=== PATIENT | female | born 1950 | race Caucasian/White ===

== ENCOUNTER 2023-11-20 11:16 | Emergency (ER) | payer OTHER, SELFPAY ==
[2023-11-20 11:20] VITALS: BP 116/62
[2023-11-20 11:40] VITALS: BP 117/55
[2023-11-20] MEDS: NSS 1000 IV (11:45)
[2023-11-20 11:58] LABS: Urine Albumin Trace (Neg - Trace); Urine Bilirubin 1+ (Negative); Urine Character Clear (Clear); Urine Color Amber; Urine Glucose Negative (Negative); Urine Ketone Negative (Negative); Urine Leukocyte 2+ (Negative); Urine Nitrite Negative (Negative); Urine Occult Blood 3+ (Negative); Urine Urobilinogen 1+ (Neg - 1+)
[2023-11-20 12:00] VITALS: BP 131/49
[2023-11-20 12:05] LABS: Urine Mucus Few; Urine Squamous Cell 0-2 /LPF (Few)
[2023-11-20 12:06] LABS: % Basophils 0.3 % (0-2); % Eosinophils 0.3 % (0-6); % Immature Granulocytes 0.3 % (0-0.5); % Lymphocytes 9.1 % (20.5-51.1); % Monocytes 4.7 % (1.7-9.3); % Neutrophils 85.3 % (42.2-75.2); Absolute Lymphocytes 0.5 10^3/uL (1.2-3.4); Absolute Monocytes 0.3 10^3/uL (0.1-0.6); Absolute Neutrophils 5.1 10^3/uL (1.4-6.5); Hematocrit 40.2 % (37.0-47.0); Hemoglobin 13.8 g/dL (12.0-16.0); Mean Corp Hgb Conc. 34.3 g/dL (33.0-37.0); Mean Corpuscular Hgb 31.4 pg (27.0-31.0); Mean Corpuscular Volume 91.4 fL (81.0-99.0); Mean Platelet Volume 10.4 fL (7.4-10.4); Nucleated Red Blood Cells % 0 %; Platelet Count 185 10^3/uL (130-400); Red Cell Dist. Width 13.5 % (11.5-14.5); Urine Calcium Oxalate Crystals Present
[2023-11-20 12:07] LABS: Urine White Cell 16-20 /HPF (0-5)
[2023-11-20 12:09] LABS: Urine Bacteria Few (Negative)
[2023-11-20 12:10] LABS: ALT (SGPT) 22 U/L (0-35); AST (SGOT) 50 U/L (14-36); Albumin 3.8 g/dl (3.5-5.0); Alkaline Phosphatase 39 U/L (38-126); Blood Urea Nitrogen 22 mg/dl (7-17); Calcium 8.9 mg/dl (8.4-10.2); Carbon Dioxide 26 mmol/L (22-30); Chloride 104 mmol/L (98-107); Estimated Creatinine Clearance 51 ml/min; Glucose 103 mg/dl (70-99); Potassium 4.3 mmol/L (3.5-5.1); Sodium 134 mmol/L (135-145); Total Bilirubin 0.7 mg/dl (0.2-1.3); eGFR > 60.00
--- NOTE | 2023-11-20 12:20 | EDRN ---
Adrianne Call PA in to see pt at this time.
--- NOTE | 2023-11-20 12:22 | ED.GENMED ---
Addendum entered and electronically signed by Tiburcio Izquierdo Jr., PA-C 11/23/23 13:24:
Urine culture positive for 20,000 of E. coli. Patient claims that she has had some urinary frequency which could be consistent with UTI patient was started on Keflex as she claims that she believes she has tolerated this in the past and is unsure
if her allergy that is listed for penicillins is accurate concerning she does not have any recollection of previous penicillin allergy. Otherwise advised for close primary care follow-up.
Original Note:
History of Present Illness
<Grace Thompson PA-C - Last Filed: 11/20/23 14:46>
General
Chief Complaint: Abdominal Symptoms
Source: patient and family
Exam Limitations: none
Time Seen by Provider: 11/20/23 11:27
Nursing documentation reviewed up to this point in time: agreed with
Travel History
Have you had any contact with someone who has COVID-19?: No
Do you have any symptoms of coronavirus? Fever > 100 degrees, chills, cough, shortness of breath, sore throat, loss of taste or smell, muscle aches, or headache?: No
History of Present Illness
History of Present Illness:
This is a 73-year-old female with a past medical history of hypertension presenting to emergency department today with 3 days of diarrhea and nausea. She states that when it first started, she believes it would pass eventually on its own and started
taking Gas-X and antidiarrheal medication however this did not relieve her symptoms. She has had similar episodes in the past but they have not lasted this long before. She has had episodes in the past, her primary care provider attributed them to
irritable bowel syndrome. She denies vomiting, fevers or chills, dysuria, hematuria. She does have some mild right-sided cramping pain occasionally associated with the diarrhea. She has no chest pain, shortness of breath, back pain. She denies
recent travel outside the country. She denies recent antibiotic use.
Past History
<Grace Thmopson PA-C - Last Filed: 11/20/23 14:46>
Past History
ED Past Medical History: HTN, Hypercholesterolemia and Other (Fibromyalgia, DVT related to OCP use many years ago)
ED Past Surgical History: Appendectomy
Social History
Tobacco: Smoker
Alcohol: Occasional
Drug: None
Personal:
Living: with family
Family History
Family History: Other (Noncontributory)
Review of Systems
<Grace Thompson PA-C - Last Filed: 11/20/23 14:46>
Review of Systems
All Other Systems: ROS reviewed and negative except as documented in HPI and ROS
Phy Exam
<Grace Thompson PA-C - Last Filed: 11/20/23 14:46>
Physical Exam
Physical Exam:
Vitals: Vital signs are stable, patient is afebrile
General: patient is well appearing and in no acute distress
Skin: warm and dry, no rashes or lesions
Cardiac: regular rate and rhythm, no murmurs
Pulm: normal respiratory effort, no wheezes, rales, or rhonchi
Abdomen: abdomen is non-distended, non-tender to palpation. normoactive bowel sounds.
Neuro: AAOx3.
Course
<Grace Thompson PA-C - Last Filed: 11/20/23 14:46>
Orders/Labs/Results
Orders:
Orders
11/20/23 11:29
IV Insert/Care/Rem.- Treatment PRN
11/20/23 11:48
Complete Blood Count/With Diff Urgent
Comprehensive Metabolic Panel Urgent
Urinalysis Reflex To Culture Urgent
Date Specimen was Collected: 11/20/23
Time Specimen was Collected: 11:36
Urine Microscopic Reflex Cult Urgent
Urine Culture Urgent
[facility] Source: U
Specimen Description:
Date Specimen was Collected: 11/20/23
Time Specimen was Collected: 11:36
11/20/23 12:22
0.9% Sodium Chloride 1000 ml [Nss] 1,000 ml IV BOLUS
11/20/23 12:34
Ondansetron Injectable [Zofran] 4 mg IV NOW STA
11/20/23 12:35
Ondansetron Injectable [Zofran] 4 mg .ROUTE .[facility]
11/20/23 13:53
C difficile Antigen & Toxins Urgent
[facility] Source: Feces/Stool
Specimen Description:
Date Specimen was Collected: 11/20/23
Time Specimen was Collected: 13:41
Stool Culture Urgent
[facility] Source: Feces/Stool
Specimen Description:
Date Specimen was Collected: 11/20/23
Time Specimen was Collected: 13:41
Abnormal Lab Results
11/20/23
11:48
MCH 31.4 H pg
(27.0-31.0)
Absolute Lymphs (auto) 0.5 L 10^3/uL
(1.2-3.4)
Neutrophils % 85.3 H %
(42.2-75.2)
Lymphocytes % 9.1 L %
(20.5-51.1)
Sodium 134 L mmol/L
(135-145)
BUN 22 H mg/dl
(7-17)
Glucose 103 H mg/dl
(70-99)
AST 50 H U/L
(14-36)
Total Protein 6.0 L g/dl
(6.3-8.2)
Ur Occult Blood Reflex 3+ A
(Negative)
Urine Bilirubin 1+ A
(Negative)
Leukocyte Esterase Rfl 2+ A
(Negative)
Urine RBC 7-10 A /HPF
(0-2)
Urine WBC (Reflex) 16-20 A /HPF
(0-5)
Urine Bacteria (Reflex) Few A
(Negative)
11/20/23 11:48
11/20/23 11:48
Vital Signs
Initial and Last Documented VS:
Initial Vital Signs
Temp Pulse Resp BP Pulse Ox
98.1 F 79 18 116/62 96
11/20/23 11:20 11/20/23 11:20 11/20/23 11:20 11/20/23 11:20 11/20/23 11:20
Last Documented Vital Signs
Temp Pulse Resp BP Pulse Ox
98.1 F 70 16 131/55 96
11/20/23 11:20 11/20/23 13:00 11/20/23 13:00 11/20/23 13:00 11/20/23 13:00
<Brandan Roe, - Last Filed: 11/20/23 14:34>
Orders/Labs/Results
Orders:
Orders
11/20/23 11:29
IV Insert/Care/Rem.- Treatment PRN
11/20/23 11:48
Complete Blood Count/With Diff Urgent
Comprehensive Metabolic Panel Urgent
Urinalysis Reflex To Culture Urgent
Date Specimen was Collected: 11/20/23
Time Specimen was Collected: 11:36
Urine Microscopic Reflex Cult Urgent
Urine Culture Urgent
[facility] Source: U
Specimen Description:
Date Specimen was Collected: 11/20/23
Time Specimen was Collected: 11:36
11/20/23 12:22
0.9% Sodium Chloride 1000 ml [Nss] 1,000 ml IV BOLUS
11/20/23 12:34
Ondansetron Injectable [Zofran] 4 mg IV NOW STA
11/20/23 12:35
Ondansetron Injectable [Zofran] 4 mg .ROUTE .[facility]
11/20/23 13:53
C difficile Antigen & Toxins Urgent
[facility] Source: Feces/Stool
Specimen Description:
Date Specimen was Collected: 11/20/23
Time Specimen was Collected: 13:41
Stool Culture Urgent
[facility] Source: Feces/Stool
Specimen Description:
Date Specimen was Collected: 11/20/23
Time Specimen was Collected: 13:41
Abnormal Lab Results
11/20/23
11:48
MCH 31.4 H pg
(27.0-31.0)
Absolute Lymphs (auto) 0.5 L 10^3/uL
(1.2-3.4)
Neutrophils % 85.3 H %
(42.2-75.2)
Lymphocytes % 9.1 L %
(20.5-51.1)
Sodium 134 L mmol/L
(135-145)
BUN 22 H mg/dl
(7-17)
Glucose 103 H mg/dl
(70-99)
AST 50 H U/L
(14-36)
Total Protein 6.0 L g/dl
(6.3-8.2)
Ur Occult Blood Reflex 3+ A
(Negative)
Urine Bilirubin 1+ A
(Negative)
Leukocyte Esterase Rfl 2+ A
(Negative)
Urine RBC 7-10 A /HPF
(0-2)
Urine WBC (Reflex) 16-20 A /HPF
(0-5)
Urine Bacteria (Reflex) Few A
(Negative)
11/20/23 11:48
11/20/23 11:48
Vital Signs
Initial and Last Documented VS:
Initial Vital Signs
Temp Pulse Resp BP Pulse Ox
98.1 F 79 18 116/62 96
11/20/23 11:20 11/20/23 11:20 11/20/23 11:20 11/20/23 11:20 11/20/23 11:20
Last Documented Vital Signs
Temp Pulse Resp BP Pulse Ox
98.1 F 70 16 131/55 96
11/20/23 11:20 11/20/23 13:00 11/20/23 13:00 11/20/23 13:00 11/20/23 13:00
<Grace Thompson PA-C - Last Filed: 11/20/23 14:46>
MDM/Problems Addressed
Differential Diagnosis Includes:
Differentials include acute viral diarrheal illness, acute bacterial diarrheal illness, irritable bowel syndrome, C. difficile
MDM/Problems Addressed:
diarrhea
dehydration
nausea

will start IV fluids, give zofran, obtain stool cultures and reassess
Chronic conditions affecting care: HTN
Acute Exacerbation and/or Progression of Chronic Illness: HTN
<Grace Thompson PA-C - Last Filed: 11/20/23 14:46>
*Pulse Oximetry
Patient hypoxic: no
*Critical Care Note
Total Time (30-74mins, 75-104mins- exclusive of procedures): Not Applicable
Data Reviewed
Review of Other/Old Records Reveals: Records (Reviewed ER physician documentation from 02/08/2020) and Discharge Summary (No recent hospitalization)
Source: patient
Prescriptions/Medications Considered But Not Given:
n/a
Further Testing Considered But Not Given:
Considered abdominal imaging however patient not having significant pain and pain seems to be related to diarrheal episodes
<Grace Thompson PA-C - Last Filed: 11/20/23 14:46>
Patient Management
Escalation/DeEscalation of care consider admission/obs:
This is a 73-year-old female presenting emergency department today with acute diarrheal illness for the past 3 days. She denies fevers or chills. She also has associated nausea but no vomiting. She also noted small specks of blood in her stool.
Here in the emergency department, her CBC demonstrates no leukocytosis and her CMP demonstrates dehydration. She was given a liter of fluids as well as Zofran. This improved her symptoms. She still noted a few episodes of diarrhea however we were
able to obtain a sample here which was negative for C. difficile. Will send patient home with Carlos, advised to follow-up with her primary care provider to ensure resolution of her symptoms.
<Grace Thompson PA-C - Last Filed: 11/20/23 14:46>
Update Note
Update Note:
1:24 pm-- on reevaluation, patient does state that she feels a bit better with IV fluids.
2:40 pm-- patient's symptoms have improved but she is still feeling nauseous, requesting zofran to go home with. Will send patient home with carlos. Stool testing negative for C.diff.
ED Attending Note
<Grace Thompson PA-C - Last Filed: 11/20/23 14:46>
-
Portions of this chart may have been created with voice recognition software.� Occasional wrong word or��sound alike� substitutions may have occurred due to the inherent limitations of voice recognition software.
<Brandan Roe DO - Last Filed: 11/20/23 14:34>
ED Attending Note
Patient seen and examined by attending physician: Yes
I performed the substantive portion of visit, reviewed & personally made and approve the management plan that is documented in note by myself or HORACE.: Yes
I performed a history and physical exam of patient and discussed management with resident, I reviewed resident's note and agree with documented findings and plan of care.: Yes
ED Attending Note:
I evaluated the patient at bedside. The patient's white blood cell count is normal. Slight elevation of BUN to creatinine ratio. Creatinine normal. Urinalysis was obtained by urine which appears to be insignificant. Main symptom is diarrhea.
She is eager to go home now. She feels somewhat improved after fluids were given. PA planning on calling patient with results. She strongly prefers to have something like Lomotil prescribed. I did suggest letting it run its course though.
Discharge Plan
Departure
Patient Disposition: Home (Routine Discharge)
Date of Disposition: 11/20/23
Time of Disposition: 14:27
Patient with high blood pressure during this ER visit?: Yes
Condition: Good
Discharge Problem:
Diarrhea
Instructions: Dehydration, Adult (DC), Acute Diarrhea, BLOOD PRESSURE
Prescriptions:
New
diphenoxylate-atropine [Lomotil] 2.5-0.025 mg tablet
1 tab PO Q6H PRN (Reason: diarrhea) Qty: 12 0RF
ondansetron 4 mg tablet,disintegrating
4 mg PO Q8H 2 Days Qty: 6 0RF
No Action
aspirin 325 MG tablet
325 mg PO DAILY PRN (Reason: headache)
simvastatin 20 MG tablet
40 mg PO HS
atenolol 50 MG tablet
50 mg PO HS
Celexa:
10 mg PO DAILY
Nortriptyline
10 mg PO DAILY
Patient Comments:
Pt states she takes 120 mg of this (noted 04/21/15).
diazepam 5 MG tablet
5 mg PO TIDPRN PRN (Reason: pain) Qty: 12 0RF
metronidazole 500 MG tablet
500 mg PO TID Qty: 20 0RF
ciprofloxacin HCl [Cipro] 500 MG tablet
500 mg PO BID Qty: 13 0RF
Referrals:
Henry Sanches MD [Family Provider] -
Activity Restrictions/Additional Instructions:
Please stay well hydrated.
Please follow up with your primary care provider. We will call you with the results of your C.diff test.
We have sent Zofran to your pharmacy, please take 1 tablet every 8 hours as needed for nausea. We also sent Lomotil to your pharmacy, please take 1 tablet every 6 hours as needed for diarrhea. If your C.diff test is positive, please STOP the
lomotil.
Interventions
Interventions:
*Risk Screen - Suicide Last Done: 11/20/23 11:20
*General Assessment Last Done: 11/20/23 11:20
*Neglect/Abuse Screening Last Done: 11/20/23 11:20
ED- Fall Risk Assessment Last Done: 11/20/23 11:40
*ED COVID-19 Vaccine History Last Done: 11/20/23 11:20
JO-Rwjywd-Zthmrkongv Assessment Last Done: 11/20/23 11:40
[2023-11-20] MEDS: ZOFRAN 4 MG IV (12:37)
[2023-11-20 13:00] VITALS: BP 131/55
[2023-11-20 14:00] VITALS: BP 138/59
== END 2023-11-20 14:50 | disposition home or self-care (01) ==
LOC: EMR 11:16
PROVIDERS: Physician Assistant; EMERGENCY PHYSICIAN Emergency Medicine; FAMILY PHYSICIAN Family Medicine
DX: R19.7 Diarrhea, unspecified (principal); R11.0 Nausea; I10 Essential (primary) hypertension; E78.00 Pure hypercholesterolemia, unspecified; M79.7 Fibromyalgia; F17.200 Nicotine dependence, unspecified, uncomplicated; K58.9 Irritable bowel syndrome, unspecified; Z86.718 Personal history of other venous thrombosis and embolism; Z90.49 Acquired absence of other specified parts of digestive tract
CPT/HCPCS: 99283; 96374; 96361; 80053; 81003; 81015; 85025; 87045; 87046; 87077; 87086; 87186; 87324; 87427; 87449

== ENCOUNTER 2024-02-06 10:15 | Emergency (ER) | payer OTHER, SELFPAY ==
[2024-02-06 10:18] VITALS: BP 126/59
[2024-02-06 11:51] VITALS: BMI 20.7
[2024-02-06] MEDS: NSS 1000 IV (12:07)
[2024-02-06] MEDS: OMNIPAQUE 50 ML PO (12:11)
[2024-02-06] MEDS: DILAUDID 0.5 MG IV (12:12)
[2024-02-06] MEDS: ZOFRAN 4 MG IV (12:13)
[2024-02-06 12:33] LABS: % Basophils 0.7 % (0-2); % Eosinophils 1.2 % (0-6); % Immature Granulocytes 0.4 % (0-0.5); % Lymphocytes 10.3 % (20.5-51.1); % Monocytes 7.2 % (1.7-9.3); % Neutrophils 80.2 % (42.2-75.2); Absolute Basophils 0.1 10^3/uL (0-0.2); Absolute Eosinophils 0.1 10^3/uL (0-0.7); Absolute Lymphocytes 0.8 10^3/uL (1.2-3.4); Absolute Monocytes 0.6 10^3/uL (0.1-0.6); Absolute Neutrophils 6.5 10^3/uL (1.4-6.5); Hematocrit 40.9 % (37.0-47.0); Hemoglobin 13.7 g/dL (12.0-16.0); Mean Corp Hgb Conc. 33.5 g/dL (33.0-37.0); Mean Corpuscular Volume 92.5 fL (81.0-99.0); Mean Platelet Volume 10.6 fL (7.4-10.4); Nucleated Red Blood Cells % 0 %; Platelet Count 191 10^3/uL (130-400); Red Blood Cell Count 4.42 10^6/uL (4.20-5.40); Red Cell Dist. Width 13.7 % (11.5-14.5); White Blood Cell Count 8.2 10^3/uL (4.8-10.8)
--- NOTE | 2024-02-06 12:37 | ED.GENMED ---
History of Present Illness
<Chai Pineda DO - Last Filed: 02/06/24 12:39>
General
Chief Complaint: Abdominal Pain
Source: patient and spouse
Exam Limitations: none
Time Seen by Provider: 02/06/24 11:32
Nursing documentation reviewed up to this point in time: agreed with
Travel History
Have you had any contact with someone who has COVID-19?: No
Do you have any symptoms of coronavirus? Fever > 100 degrees, chills, cough, shortness of breath, sore throat, loss of taste or smell, muscle aches, or headache?: No
History of Present Illness
History of Present Illness:
73-year-old female limited past medical history presents with abdominal pain left greater than right 4 days ago no fever or chills, no nausea has been constipated, saw her PCP x 2 initially had a urine dip which showed blood given antibiotics
Augmentin took 2 doses, followed up the next day, told the culture was negative told to stop the antibiotics pain is worsened no prior abdominal surgeries,
Past History
<DO Miesha Cook Last Filed: 02/06/24 12:39>
Past History
ED Past Medical History: HTN, Hypercholesterolemia and Other (Fibromyalgia, DVT related to OCP use many years ago)
ED Past Surgical History: Appendectomy
Social History
Tobacco: Smoker
Alcohol: Occasional
Drug: None
Personal:
Living: with family
Employment: Retired
Family History
Family History: Other (Noncontributory)
Review of Systems
<DO Miesha Cook Last Filed: 02/06/24 12:39>
Review of Systems
All Other Systems: Not applicable
Constitutional: Denies fever or fatigue
Respiratory: Reports no symptoms
Cardiac: Reports no symptoms
ABD/GI: Reports abdominal pain
Phy Exam
<Chai Pineda DO - Last Filed: 02/06/24 12:39>
Physical Exam
Physical Exam:
Physical Exam
General: no apparent distress, not acutely ill
Neck: No jaw
Heart: s1/s2 regular rate and rhythm, no murmur. equal radial pulses.
Lungs: no acute respiratory distress.
Abdomen: Tender left greater than right lower abdomen
Neuro: alert and oriented. no focal neurological deficits
Skin: no rash
Psychiatric: well kept. interactive and cooperative
Extremities: no edema.
Course
<Chai Pineda, DO - Last Filed: 02/06/24 12:39>
Orders/Labs/Results
Orders:
Orders
02/06/24 11:58
HYDROmorphone [Dilaudid] 0.5 mg IV NOW STA
02/06/24 11:59
CT Abd/pel W Iv And Oral Contr Urgent
Comment:
Reason For Exam: PIAN
0.9% Sodium Chloride 1000 ml [Nss] 1,000 ml IV BOLUS
Iohexol [Omnipaque] See Protocol PO NOW STA
02/06/24 12:10
Ondansetron Injectable [Zofran] 4 mg .ROUTE .[facility]
02/06/24 12:12
Ondansetron Injectable [Zofran] 4 mg IV NOW STA
02/06/24 12:19
Complete Blood Count/With Diff Urgent
Comprehensive Metabolic Panel Urgent
Abnormal Lab Results
02/06/24
12:19
MPV 10.6 H fL
(7.4-10.4)
Absolute Lymphs (auto) 0.8 L 10^3/uL
(1.2-3.4)
Neutrophils % 80.2 H %
(42.2-75.2)
Lymphocytes % 10.3 L %
(20.5-51.1)
BUN 22 H mg/dl
(7-17)
Glucose 101 H mg/dl
(70-99)
Total Protein 6.0 L g/dl
(6.3-8.2)
02/06/24 12:19
02/06/24 12:19
Vital Signs
Initial and Last Documented VS:
Initial Vital Signs
Temp Pulse Resp BP Pulse Ox
98.7 F 73 18 126/59 97
02/06/24 10:18 02/06/24 10:18 02/06/24 10:18 02/06/24 10:18 02/06/24 10:18
Last Documented Vital Signs
Temp Pulse Resp BP Pulse Ox
98.7 F 60 18 126/59 96
02/06/24 10:18 02/06/24 12:30 02/06/24 10:18 02/06/24 10:18 02/06/24 12:30
Lamarlt;Casey Allen PA-C - Last Filed: 02/06/24 16:45>
Orders/Labs/Results
Orders:
Orders
02/06/24 11:58
HYDROmorphone [Dilaudid] 0.5 mg IV NOW STA
02/06/24 11:59
CT Abd/pel W Iv And Oral Contr Urgent
Comment:
Reason For Exam: PIAN
0.9% Sodium Chloride 1000 ml [Nss] 1,000 ml IV BOLUS
Iohexol [Omnipaque] See Protocol PO NOW STA
02/06/24 12:10
Ondansetron Injectable [Zofran] 4 mg .ROUTE .[facility]
02/06/24 12:12
Ondansetron Injectable [Zofran] 4 mg IV NOW STA
02/06/24 12:19
Complete Blood Count/With Diff Urgent
Comprehensive Metabolic Panel Urgent
Abnormal Lab Results
02/06/24
12:19
MPV 10.6 H fL
(7.4-10.4)
Absolute Lymphs (auto) 0.8 L 10^3/uL
(1.2-3.4)
Neutrophils % 80.2 H %
(42.2-75.2)
Lymphocytes % 10.3 L %
(20.5-51.1)
BUN 22 H mg/dl
(7-17)
Glucose 101 H mg/dl
(70-99)
Total Protein 6.0 L g/dl
(6.3-8.2)
02/06/24 12:19
02/06/24 12:19
Vital Signs
Initial and Last Documented VS:
Initial Vital Signs
Temp Pulse Resp BP Pulse Ox
98.7 F 73 18 126/59 97
02/06/24 10:18 02/06/24 10:18 02/06/24 10:18 02/06/24 10:18 02/06/24 10:18
Last Documented Vital Signs
Temp Pulse Resp BP Pulse Ox
98.7 F 60 18 126/59 96
02/06/24 10:18 02/06/24 12:30 02/06/24 10:18 02/06/24 10:18 02/06/24 12:30
<Chai Pineda DO - Last Filed: 02/06/24 12:39>
MDM/Problems Addressed
Differential Diagnosis Includes:
Diverticulitis colitis urinary tract infection ovarian pathology
MDM/Problems Addressed:
Left lower abdominal
Chronic conditions affecting care: Previous abdomnial surgery
Acute Exacerbation and/or Progression of Chronic Illness: Previous abdomnial surgery
<Chai Pineda DO - Last Filed: 02/06/24 12:39>
*Radiology
Radiology exam reviewed: preliminary read by ED provider
*Pulse Oximetry
Patient hypoxic: no
*Coiler Operator Interpretation
Rate: Coiler Operator- N/A
*Critical Care Note
Total Time (30-74mins, 75-104mins- exclusive of procedures): Not Applicable
<Casey Allen PA-C - Last Filed: 02/06/24 16:45>
Update Note
Update Note:
Received care of patient upon pending CT. CT demonstrates colonic wall thickening to suggest diverticulitis without evidence of rupture free air or abscess. No other abnormalities were found. Discussed with patient. She has a severely adverse
reaction to Cipro. Will hold off on quinolones. Will have her continue the Augmentin. Recommended follow-up with family doctor to ensure read
ED Attending Note
<Chai Pineda DO - Last Filed: 02/06/24 12:39>
-
Portions of this chart may have been created with voice recognition software.� Occasional wrong word or��sound alike� substitutions may have occurred due to the inherent limitations of voice recognition software.
Discharge Plan
Departure
Patient Disposition: Home (Routine Discharge)
Date of Disposition: 02/06/24
Time of Disposition: 16:42
Patient with high blood pressure during this ER visit?: No
Discharge Problem:
Diverticulitis
Instructions: Diverticulitis (DC)
Prescriptions:
No Action
aspirin 325 MG tablet
325 mg PO DAILY PRN (Reason: headache)
simvastatin 20 MG tablet
40 mg PO HS
atenolol 50 MG tablet
50 mg PO HS
Celexa:
10 mg PO DAILY
Nortriptyline
10 mg PO DAILY
Patient Comments:
Pt states she takes 120 mg of this (noted 04/21/15).
diazepam 5 MG tablet
5 mg PO TIDPRN PRN (Reason: pain) Qty: 12 0RF
metronidazole 500 MG tablet
500 mg PO TID Qty: 20 0RF
ciprofloxacin HCl [Cipro] 500 MG tablet
500 mg PO BID Qty: 13 0RF
diphenoxylate-atropine [Lomotil] 2.5-0.025 mg tablet
1 tab PO Q6H PRN (Reason: diarrhea) Qty: 12 0RF
ondansetron 4 mg tablet,disintegrating
4 mg PO Q8H 2 Days Qty: 6 0RF
cephalexin 500 mg capsule
500 mg PO TID 3 Days Qty: 9 0RF
Referrals:
Henry Sanches MD [Family Provider] -
Activity Restrictions/Additional Instructions:
Continue with the Augmentin. Use clear liquids. Advance to bland diet as tolerated.
Interventions
Interventions:
*Risk Screen - Suicide Last Done: 02/06/24 11:52
*General Assessment Last Done: 02/06/24 11:52
*Neglect/Abuse Screening Last Done: 02/06/24 11:52
ED- Fall Risk Assessment Last Done: 02/06/24 12:29
*ED COVID-19 Vaccine History Last Done: 02/06/24 10:18
TQ-Vmidkb-Qvrpgfnyuh Assessment Last Done: 02/06/24 11:52
Discharge Date and Time
Print Language: CHINESE
[2024-02-06 12:45] LABS: ALT (SGPT) 14 U/L (0-35); AST (SGOT) 26 U/L (14-36); Albumin 3.7 g/dl (3.5-5.0); Alkaline Phosphatase 41 U/L (38-126); Blood Urea Nitrogen 22 mg/dl (7-17); Calcium 9.4 mg/dl (8.4-10.2); Carbon Dioxide 28 mmol/L (22-30); Chloride 105 mmol/L (98-107); Estimated Creatinine Clearance 59 ml/min; Glucose 101 mg/dl (70-99); Potassium 4.3 mmol/L (3.5-5.1); Sodium 136 mmol/L (135-145); Total Bilirubin 0.9 mg/dl (0.2-1.3); eGFR > 60.00
[2024-02-06 15:24] VITALS: BP 134/50
[2024-02-06 16:00] VITALS: BP 142/63
== END 2024-02-06 17:49 | disposition home or self-care (01) ==
LOC: EMR 10:15
PROVIDERS: EMERGENCY PHYSICIAN Emergency Medicine; FAMILY PHYSICIAN Family Medicine
DX: K57.12 Diverticulitis of small intestine without perforation or abscess without bleeding (principal); F17.200 Nicotine dependence, unspecified, uncomplicated
CPT/HCPCS: 99285; 96374; 96375; 96361; 74177; 80053; 85025; Q9967

== ENCOUNTER → 2024-07-08 10:00 | Outpatient (REF) | payer OTHER, SELFPAY | LOC: HWRAD 10:00 | PROVIDERS: ATTENDING PHYSICIAN Family Medicine | DX: R05.1 Acute cough (principal); J40 Bronchitis, not specified as acute or chronic | CPT/HCPCS: 71046 ==

== ENCOUNTER 2025-06-03 09:08 | Emergency (ER) | payer OTHER, SELFPAY ==
[2025-06-03 09:13] VITALS: BP 137/68
--- NOTE | 2025-06-03 10:13 | ED.MUSCINJ ---
HPI-Injury
General
Chief Complaint: Fall
Source: patient
Exam Limitations: none
Time Seen by Provider: 06/03/25 10:03
History of Present Illness-Injury
Initial Injury comments:
75-year-old female presents complaining of left knee pain. She tripped and fell landing on her left knee yesterday. She notes swelling and pain. She is using a cane which she usually does not. No other complaints.
Past History
Past History
ED Past Medical History: HTN, Hypercholesterolemia and Other (Fibromyalgia, DVT related to OCP use many years ago)
ED Past Surgical History: Appendectomy
Social History
Tobacco: Smoker
Alcohol: Occasional
Drug: None
Personal:
Living: with family
Employment: Retired
Family History
Family History: Other (Noncontributory)
Phy Exam
Physical Exam
Physical Exam:
General: Well-appearing female in no acute distress
Musculoskeletal exam: Left knee with moderate effusion tender over the anterior medial aspect. Able to straight leg raise. No significant deformity
Skin is intact
Injury Course
Orders/Labs/Results
Orders:
Orders
06/03/25 09:15
CR Knee - Left 4 Or More View* Urgent
Comment:
Reason For Exam: fall
MDM/Problems Addressed
Differential Diagnosis Includes:
Mechanical fall with left knee strike. Consider contusion versus effusion versus hematoma versus fracture. X-rays pending
*Pulse Oximetry
SaO2: 98
Oxygen Mode of Delivery: Room air
Patient hypoxic: no
*Critical Care Note
Total Time (30-74mins, 75-104mins- exclusive of procedures): Not Applicable
Update Note
Update Note:
X-rays left knee show significant degenerative joint disease without associated fracture. There is a small suprapatellar effusion noted. I suspect flare of underlying arthritis causing pain. Will offer knee immobilizer and have her follow-up.
ED Attending Note
-
Portions of this chart may have been created with voice recognition software.� Occasional wrong word or��sound alike� substitutions may have occurred due to the inherent limitations of voice recognition software.
Discharge Plan
Departure
Patient Disposition: Home (Routine Discharge)
Date of Disposition: 06/03/25
Time of Disposition: 12:38
Patient with high blood pressure during this ER visit?: No
Discharge Problem:
Contusion
Instructions: Contusion (DC)
Prescriptions:
No Action
aspirin 325 MG tablet
325 mg PO DAILY PRN (Reason: headache)
simvastatin 20 MG tablet
40 mg PO HS
atenolol 50 MG tablet
50 mg PO HS
Celexa:
10 mg PO DAILY
Nortriptyline
10 mg PO DAILY
Patient Comments:
Pt states she takes 120 mg of this (noted 04/21/15).
diazepam 5 MG tablet
5 mg PO TIDPRN PRN (Reason: pain) Qty: 12 0RF
metronidazole 500 MG tablet
500 mg PO TID Qty: 20 0RF
ciprofloxacin HCl [Cipro] 500 MG tablet
500 mg PO BID Qty: 13 0RF
diphenoxylate-atropine [Lomotil] 2.5-0.025 mg tablet
1 tab PO Q6H PRN (Reason: diarrhea) Qty: 12 0RF
ondansetron 4 mg tablet,disintegrating
4 mg PO Q8H 2 Days Qty: 6 0RF
cephalexin 500 mg capsule
500 mg PO TID 3 Days Qty: 9 0RF
Referrals:
Gabriel Nunes MD [Active, Orthopedics]
Henry Sanches MD [Family Provider, Family Practice]
Activity Restrictions/Additional Instructions:
Use brace for support. May continue with ibuprofen or Tylenol for pain. Follow-up with orthopedics. Return if needed otherwise
Interventions
Interventions:
*Risk Screen - Suicide Last Done: 06/03/25 09:13
*Neglect/Abuse Screening Last Done: 06/03/25 09:13
ED-Musculoskeletal Assessment Last Done: 06/03/25 10:35
ED- Neurological Assessment Last Done: 06/03/25 10:35
ED-Skin Assessment Last Done: 06/03/25 10:35
Discharge Date and Time
Print Language: BULGARIAN
== END 2025-06-03 13:47 | disposition home or self-care (01) ==
LOC: EMR 09:08
PROVIDERS: EMERGENCY PHYSICIAN Emergency Medicine; FAMILY PHYSICIAN Family Medicine
DX: S80.02XA Contusion of left knee, initial encounter (principal); M16.12 Unilateral primary osteoarthritis, left hip; M25.462 Effusion, left knee; I10 Essential (primary) hypertension; E78.00 Pure hypercholesterolemia, unspecified; M79.7 Fibromyalgia; F17.200 Nicotine dependence, unspecified, uncomplicated; Z86.718 Personal history of other venous thrombosis and embolism; W01.0XXA Fall on same level from slipping, tripping and stumbling without subsequent striking against object, initial encounter
CPT/HCPCS: 99283; 73564

== ENCOUNTER 2025-07-22 08:03 | Emergency (ER) | payer OTHER, SELFPAY ==
[2025-07-22 08:09] VITALS: BP 143/73
[2025-07-22 08:26] VITALS: BP 154/63
[2025-07-22 08:34] VITALS: BMI 20.6
--- NOTE | 2025-07-22 08:55 | ED.GENMED ---
History of Present Illness
General
Chief Complaint: Rectal Bleeding
Time Seen by Provider: 07/22/25 08:30
History of Present Illness
History of Present Illness:
75-year-old female with history of hyperlipidemia presents to the emergency department for evaluation of generalized but predominantly lower abdominal pain for the past 5 days associated with nausea and poor intake. She reports tenesmus and blood
streaked/mucousy stools. Reports minimal bowel output in the past 24 to 48 hours. Has been using Pepto-Bismol and noted a change in stool color from brown to black yesterday. No fevers or chills. Prior abdominal surgical history includes
appendectomy.
Past History
Past History
ED Past Medical History: HTN, Hypercholesterolemia and Other (Fibromyalgia, DVT related to OCP use many years ago)
ED Past Surgical History: Appendectomy
Social History
Tobacco: Smoker
Alcohol: Occasional
Drug: None
Personal:
Living: with family
Employment: Retired
Family History
Family History: Other (Noncontributory)
Review of Systems
Review of Systems
Allergies reviewed?: Yes
All Other Systems: ROS reviewed and negative except as documented in HPI and ROS
Phy Exam
Physical Exam
Physical Exam:
GEN: Well appearing, NAD, WDWN
HEENT: Oral mucosa moist, no scleral icterus
Cardiac: Regular rate and rhythm, no murmur
Lung: No respiratory distress, no tachypnea
Abdomen: Soft, focal left lower quadrant tenderness without rigidity
MSK: No gross deformity or injuries
Skin: Good color, no pallor or jaundice, no rashes
Neuro: AO x3, moves all extremities freely
Psych: Calm, cooperative
Course
Orders/Labs/Results
Orders:
Orders
07/22/25 08:54
CT Abd/Pel (IV only)-DH only Urgent
Comment:
Reason For Exam: lower abd pain
0.9% Sodium Chloride 1000 ml [Nss] 1,000 ml IV BOLUS
07/22/25 09:37
Complete Blood Count/With Diff Urgent
Comprehensive Metabolic Panel Urgent
Lipase Urgent
07/22/25 11:19
Amoxicillin 875 mg/Clav 125 mg [Augmentin 875 mg/125 mg] 1 tablet PO NOW STA
Abnormal Lab Results
07/22/25
09:37
WBC 3.8 L 10^3/uL
(4.8-10.8)
MPV 10.9 H fL
(7.4-10.4)
Chloride 108 H mmol/L
(98-107)
Alkaline Phosphatase 31 L U/L
(38-126)
Total Protein 6.1 L g/dl
(6.3-8.2)
07/22/25 09:37
07/22/25 09:37
Vital Signs
Initial and Last Documented VS:
Initial Vital Signs
Temp Pulse Resp BP Pulse Ox
98.3 F 69 16 143/73 99
07/22/25 08:09 07/22/25 08:09 07/22/25 08:09 07/22/25 08:09 07/22/25 08:09
Last Documented Vital Signs
Temp Pulse Resp BP Pulse Ox
98.9 F 59 18 169/51 98
07/22/25 11:25 07/22/25 11:25 07/22/25 11:25 07/22/25 11:25 07/22/25 11:25
MDM/Problems Addressed
MDM/Problems Addressed:
Exam and CT scan are suspicious for mild acute diverticulitis. Patient will be started empirically on oral antibiotics and strongly encouraged to begin a clear liquid only diet. Her labs are unremarkable and she is suitable for outpatient
management
*Pulse Oximetry
SaO2: 98
Oxygen Mode of Delivery: Room air
Patient hypoxic: no
*Critical Care Note
Total Time (30-74mins, 75-104mins- exclusive of procedures): Not Applicable
ED Attending Note
-
Portions of this chart may have been created with voice recognition software.� Occasional wrong word or��sound alike� substitutions may have occurred due to the inherent limitations of voice recognition software.
Discharge Plan
Departure
Patient Disposition: Home (Routine Discharge)
Date of Disposition: 07/22/25
Time of Disposition: 11:05
Patient with high blood pressure during this ER visit?: No
Discharge Problem:
Acute diverticulitis
Instructions: Clear Liquid Diet, Diverticulitis (DC)
Prescriptions:
New
amoxicillin-pot clavulanate 875-125 mg tablet
1 tab PO BID 10 Days Qty: 20 0RF
No Action
simvastatin 20 MG tablet
40 mg PO HS
atenolol 50 MG tablet
50 mg PO HS
Celexa:
10 mg PO DAILY
Nortriptyline
10 mg PO DAILY
Patient Comments:
Pt states she takes 120 mg of this (noted 04/21/15).
diphenoxylate-atropine [Lomotil] 2.5-0.025 mg tablet
1 tab PO Q6H PRN (Reason: diarrhea) Qty: 12 0RF
ondansetron 4 mg tablet,disintegrating
4 mg PO Q8H 2 Days Qty: 6 0RF
Referrals:
Henry Sanches MD [Family Provider, Family Practice]
Interventions
Interventions:
*Risk Screen - Suicide Last Done: 07/22/25 08:09
*General Assessment Last Done: 07/22/25 08:34
*Neglect/Abuse Screening Last Done: 07/22/25 08:09
*ED- Fall Risk Assessment Last Done: 07/22/25 08:34
*ED COVID-19 Vaccine History Last Done: 07/22/25 08:34
*ED Influenza Vaccine History Last Done: 07/22/25 08:34
*Nursing Disposition Last Done: 07/22/25 11:25
KS-Wawjvi-Mgfxjtphoc Assessment Last Done: 07/22/25 08:34
ED- Cardiac Assessment Last Done: 07/22/25 08:34
ED- Pulmonary Assessment Last Done: 07/22/25 08:34
Discharge Date and Time
Discharge Date/Time: 07/22/25 11:26
Print Language: CYMRO
[2025-07-22 09:00] VITALS: BP 156/49
[2025-07-22 09:49] LABS: Hematocrit 39.0 % (37.0-47.0); Hemoglobin 13.0 g/dL (12.0-16.0); Mean Corp Hgb Conc. 33.3 g/dL (33.0-37.0); Mean Corpuscular Volume 91.1 fL (81.0-99.0); Nucleated Red Blood Cells % 0 %; Platelet Count 176 10^3/uL (130-400); Red Cell Dist. Width 14.0 % (11.5-14.5)
[2025-07-22] MEDS: NSS 1000 IV (09:55)
[2025-07-22 10:00] VITALS: BP 161/51
[2025-07-22 10:06] LABS: ALT (SGPT) 14 U/L (0-35); AST (SGOT) 24 U/L (14-36); Albumin 3.7 g/dl (3.5-5.0); Alkaline Phosphatase 31 U/L (38-126); Blood Urea Nitrogen 17 mg/dl (7-17); Calcium 9.2 mg/dl (8.4-10.2); Carbon Dioxide 28 mmol/L (22-30); Chloride 108 mmol/L (98-107); Estimated Creatinine Clearance 52 ml/min; Glucose 88 mg/dl (70-99); Lipase 111 U/L (23-300); Potassium 4.5 mmol/L (3.5-5.1); Sodium 139 mmol/L (135-145); Total Protein 6.1 g/dl (6.3-8.2); eGFR > 60.00
[2025-07-22 11:13] VITALS: BP 169/51
[2025-07-22] MEDS: AUGMENTIN 875 MG/125 MG 1 TABLET PO (11:22)
[2025-07-22 11:25] VITALS: BP 169/51
== END 2025-07-22 11:26 | disposition home or self-care (01) ==
LOC: EMR 08:03
PROVIDERS: Physician Assistant; EMERGENCY PHYSICIAN Emergency Medicine; FAMILY PHYSICIAN Family Medicine
DX: K57.32 Diverticulitis of large intestine without perforation or abscess without bleeding (principal); E78.00 Pure hypercholesterolemia, unspecified; I10 Essential (primary) hypertension; Z86.718 Personal history of other venous thrombosis and embolism; M79.7 Fibromyalgia; F17.200 Nicotine dependence, unspecified, uncomplicated
CPT/HCPCS: 99284; 74177; 80053; 83690; 85025; Q9967

== ENCOUNTER 2025-09-26 09:05 | Emergency (ER) | payer OTHER, SELFPAY ==
[2025-09-26] VITALS (7 sets, daily range): BP systolic 117–166; BP diastolic 43–70; PULSE 66; O2SAT 99; BMI 20.7
--- NOTE | 2025-09-26 09:11 | ED.GENMED ---
History of Present Illness
General
Chief Complaint: Fall
Time Seen by Provider: 09/26/25 09:08
History of Present Illness
History of Present Illness:
FOCUSED PAST MEDICAL HISTORY
- Anxiety/depression, diverticular disease
REVIEW OF OLD RECORDS
- The patient was seen in the emergency department with diverticulitis in July
Note:
CHIEF COMPLAINT(S)
Weakness and fainting, suspected dehydration.
HISTORY OF PRESENT ILLNESS
I spoke to EMS upon arrival to obtain history
This is a 75-year-old female with a general feeling of malaise and flu-like symptoms over the past several days. She reports subjective fevers and significant weakness, culminating in a syncopal episode today, during which she fell and injured her
left hip and thigh. She denies any head trauma during the episode. The patient mentioned feeling dehydrated. She has chronic diarrhea, which was present during this episode as well.
ADDITIONAL HISTORY OBTAINED FROM SOURCES OTHER THAN THE PATIENT
Per EMS, the patient displayed general weakness and lethargy upon their arrival.
PHYSICAL EXAM
General: Appears generally weak and lethargic.
Skin: Dehydrated with dry mucosa; dried stool noted on extremities.
Gastrointestinal: Soft, non-tender abdomen.
- HEENT: Dry oral mucosa
- Cardiovascular: No murmurs, normal heart rate, regular rhythm, No chest wall tenderness
- Pulmonary: No respiratory distress, breath sounds are clear and equal
- Abdomen: Soft with no peritoneal signs, no tenderness
- Neurologic: Good strength all extremities, no coordination deficits
- Psychiatric: Appropriate mental status, normal insight and judgement
- Extremities: Nontender, no edema, moves all extremities equally
PROBLEM LIST
Acute:
1. Syncope with fall and injury to the left hip and thigh.
2. Suspected dehydration.
3. General malaise with flu-like symptoms and subjective fever.
Chronic:
1. Chronic diarrhea.
DIFFERENTIAL DIAGNOSIS
The Differential Diagnosis includes, in no particular order and is not limited to:
1. Dehydration
2. Syncope secondary to dehydration
3. Acute Gastroenteritis
4. Orthostatic Hypotension
5. Viral Infection (e.g., Influenza)
6. Electrolyte Imbalance
7. Gastrointestinal Bleed
8. Sepsis
9. Anemia
10. Cardiac Arrhythmia
RADIOLOGY
- X-rays of pelvis, left hip, left femur unremarkable
EKG
- Sinus 67, normal axis, no acute ST normality, no change from 02/07/2021
LABS
- CBC unremarkable, mild leukopenia noted, chemistries unremarkable
SUMMARY OF ENCOUNTER
The patient, a 75-year-old female, presented to the emergency department with symptoms consistent with influenza and a fall leading to pain in the left hip and thigh. A flu test returned positive, confirming influenza as the likely cause of her
malaise and dehydration. The patient experienced significant weakness, culminating in a syncopal episode. Despite the fall, an X-ray of the hip and thigh was reviewed by both the provider and the radiologist, showing no fractures. The patients
kidney function was reported to be normal.
EMERGENCY TREATMENTS ADMINISTERED
Intravenous fluids were administered to address dehydration. The patient was also given ketorolac (Toradol) for pain management.
INDEPENDENT REVIEW OF LABS AND INTERPRETATION OF TESTS
My independent review of the X-ray indicates no fractures in the left hip or thigh. My independent review of renal function tests indicates normal kidney function.
PATIENT EDUCATION AND COUNSELING
The patient was informed about the positive flu test and the nature of influenza as the cause of her symptoms. Discussion occurred about the antiviral medication oseltamivir (Tamiflu), noting it might help prevent worsening or speed up recovery,
though not likely to produce immediate significant improvement. The patient was also advised regarding the absence of fractures.
FOLLOW-UP INSTRUCTIONS
A prescription for oseltamivir (Tamiflu) was offered to be sent to the patients pharmacy.
MEDICATION RECONCILIATION
The patient received a dose of ketorolac in the emergency department. A prescription for oseltamivir (Tamiflu) was discussed.
MEDICAL DECISION MAKING
- Number and Complexity of Problems Addressed: Chronic conditions affecting care include chronic diarrhea and the differential diagnosis list: Dehydration, Syncope secondary to dehydration, Acute Gastroenteritis, Orthostatic Hypotension, Viral
Infection (Influenza), Electrolyte Imbalance, Gastrointestinal Bleed, Sepsis, Anemia, Cardiac Arrhythmia.
- Data:
- Category 1: Clinical information was obtained from an independent historian (EMS reported general weakness and lethargy upon arrival).
- Category 3: No consultations with other providers were mentioned.
DIAGNOSIS
- Influenza (J10.1)
- Dehydration due to Influenza (E86.0)
- Fall with Syncope (R55.9)
- Gait dysfunction
UPDATE
- Patient is found to be flu positive; started on Tamiflu
- Labs and vital signs relatively unremarkable
- Consider discharge however the patient did very poorly with trying to stand up
- She states that her is currently hospitalized and her family is in [place] and work and cannot provide assistance at this time
- I have placed consults for case management and physical therapy and I spoke to physical therapist
- Patient did not do well with physical therapy
- However patient adamant about going home
- Care management did reach out and feels that they could have her placed at a facility but again patient refuses to go anywhere else and she seems to be able to make her own decisions
- Currently, we are waiting on the son's presence to take the patient home
- Prior to discharge, patient requests dose of atenolol given as she cannot get to the pharmacy tonight�this has been ordered.
Past History
Past History
ED Past Medical History: HTN, Hypercholesterolemia and Other (Fibromyalgia, DVT related to OCP use many years ago)
ED Past Surgical History: Appendectomy
Social History
Tobacco: Smoker
Alcohol: Occasional
Drug: None
Personal:
Living: with family
Employment: Retired
Family History
Family History: Other (Noncontributory)
Phy Exam
Physical Exam
Physical Exam:
See HPI
Course
Orders/Labs/Results
Orders:
Orders
09/26/25 09:07
EKG [Electrocardiogram (*1)] Urgent
Reason for Study: Syncope
EKG- Treatment ONCE
09/26/25 09:08
0.9% Sodium Chloride 1000 ml [Nss] 1,000 ml IV BOLUS
CR Femur - Left Min 2 Vw Urgent
Comment:
Reason For Exam: fall pain
CR Hip - LT w/wo Pel 2-3 Vw* Urgent
Comment:
Reason For Exam: fall pain
Include a pelvis x-ray?: Yes
09/26/25 09:27
Complete Blood Count/With Diff Urgent
Comprehensive Metabolic Panel Urgent
Influenza A+B Rapid Molecular Urgent
SOHA Source: Nasal Swab
Specimen Description:
09/26/25 09:47
Oseltamivir Phosphate [Tamiflu] 75 mg PO NOW STA
09/26/25 09:58
Ketorolac [Toradol] 15 mg IV NOW STA
09/26/25 11:09
Case Management Consult ONCE
Case Management Consult: Discharge Planning
PT Consult [Pt Eval And Treat] Urgent
Activity Level: Ambulate
09/26/25 15:42
Tramadol HCl [Ultram] 50 mg PO NOW STA
09/26/25 16:28
Atenolol [Tenormin] 50 mg PO NOW STA
Abnormal Lab Results
09/26/25
09:27
WBC 3.9 L 10^3/uL
(4.8-10.8)
RBC 3.96 L 10^6/uL
(4.20-5.40)
MCHC 32.3 L g/dL
(33.0-37.0)
Absolute Lymphs (auto) 0.6 L 10^3/uL
(1.2-3.4)
Immature Gran % 0.8 H %
(0-0.5)
Lymphocytes % 15.8 L %
(20.5-51.1)
Monocytes % 10.7 H %
(1.7-9.3)
Sodium 134 L mmol/L
(135-145)
BUN 19 H mg/dl
(7-17)
Glucose 107 H mg/dl
(70-99)
Alkaline Phosphatase 30 L U/L
(38-126)
Total Protein 6.0 L g/dl
(6.3-8.2)
09/26/25 09:27
09/26/25 09:27
Vital Signs
Initial and Last Documented VS:
Initial Vital Signs
Temp Pulse Resp BP Pulse Ox
37.1 C 70 13 117/43 96
09/26/25 09:21 09/26/25 09:21 09/26/25 09:21 09/26/25 09:21 09/26/25 09:21
Last Documented Vital Signs
Temp Pulse Resp BP Pulse Ox
37.1 C 78 15 166/59 98
09/26/25 09:21 09/26/25 15:17 09/26/25 12:45 09/26/25 16:00 09/26/25 15:17
*Pulse Oximetry
Patient hypoxic: no
*Critical Care Note
Total Time (30-74mins, 75-104mins- exclusive of procedures): Not Applicable
ED Attending Note
-
Portions of this chart may have been created with voice recognition software.� Occasional wrong word or��sound alike� substitutions may have occurred due to the inherent limitations of voice recognition software.
Discharge Plan
Departure
Patient Disposition: Home (Routine Discharge)
Date of Disposition: 09/26/25
Time of Disposition: 12:38
Patient with high blood pressure during this ER visit?: Yes
Discharge Problem:
Influenza A, Weakness
Instructions: Flu in adults (DC), BLOOD PRESSURE
Prescriptions:
New
oseltamivir [Tamiflu] 75 mg capsule
75 mg PO BID 5 Days Qty: 10 0RF
tramadol 50 mg tablet
50 mg PO BID PRN (Reason: Pain) Qty: 14 0RF
No Action
simvastatin 20 MG tablet
40 mg PO HS
atenolol 50 MG tablet
50 mg PO HS
Celexa:
10 mg PO DAILY
Nortriptyline
10 mg PO DAILY
Patient Comments:
Pt states she takes 120 mg of this (noted 04/21/15).
diphenoxylate-atropine [Lomotil] 2.5-0.025 mg tablet
1 tab PO Q6H PRN (Reason: diarrhea) Qty: 12 0RF
ondansetron 4 mg tablet,disintegrating
4 mg PO Q8H 2 Days Qty: 6 0RF
amoxicillin-pot clavulanate 875-125 mg tablet
1 tab PO BID 10 Days Qty: 20 0RF
Referrals:
Henry Sanches MD [Family Provider, Family Practice]
Activity Restrictions/Additional Instructions:
You tested positive for the flu. Basic blood work is relatively unremarkable. X-rays of the pelvis, left hip, left femur are normal. We started you on Tamiflu and I sent a prescription for Tamiflu to your pharmacy.
Interventions
Interventions:
*General Assessment Last Done: 09/26/25 09:08
*Neglect/Abuse Screening Last Done: 09/26/25 09:08
*ED COVID-19 Vaccine History Last Done: 09/26/25 09:13
*ED Influenza Vaccine History Last Done: 09/26/25 09:13
[facility] Fall Risk Assessment Tool Last Done: 09/26/25 09:42
*Risk Screen - Suicide (C-SSRS) Last Done: 09/26/25 09:23
ED-Musculoskeletal Assessment Last Done: 09/26/25 09:40
ED- Neurological Assessment Last Done: 09/26/25 09:12
Discharge Date and Time
Print Language: ARMENIAN
[2025-09-26] MEDS: NSS 1000 IV (09:26)
[2025-09-26 09:37] LABS: Hematocrit 37.5 % (37.0-47.0); Hemoglobin 12.1 g/dL (12.0-16.0); Mean Corp Hgb Conc. 32.3 g/dL (33.0-37.0); Mean Corpuscular Volume 94.7 fL (81.0-99.0); Nucleated Red Blood Cells % 0 %; Platelet Count 146 10^3/uL (130-400); Red Cell Dist. Width 14.5 % (11.5-14.5)
[2025-09-26 09:46] LABS: ALT (SGPT) 16 U/L (0-35); AST (SGOT) 31 U/L (14-36); Albumin 3.6 g/dl (3.5-5.0); Alkaline Phosphatase 30 U/L (38-126); Blood Urea Nitrogen 19 mg/dl (7-17); Calcium 8.7 mg/dl (8.4-10.2); Carbon Dioxide 24 mmol/L (22-30); Chloride 105 mmol/L (98-107); Glucose 107 mg/dl (70-99); Potassium 3.9 mmol/L (3.5-5.1); Sodium 134 mmol/L (135-145); Total Protein 6.0 g/dl (6.3-8.2); eGFR > 60.00
[2025-09-26] MEDS: TAMIFLU 75 MG PO (09:55)
[2025-09-26] MEDS: TORADOL 15 MG IV (10:01)
--- NOTE | 2025-09-26 11:44 | EDCM ---
Addendum entered by Faye Aguilar 09/26/25 15:35:
Pt's son Mamadou called and spoke to ED provider. I asked pt for permission to call Mamadou and she agreed. I spoke to Mamadou, he is concerned his mother may not do well at home and wanted to discuss SNF. I informed him that I could get her a private
room at [facility] but she refused. He asked if she could change her mind once she gets home, I told him if it was longer than 24 hours she would need to return to the ED and be seen by PT again. He has ED CM number and will call in the morning
if needed.
Addendum entered by Faye Aguilar 09/26/25 13:02:
PT recommends skilled rehab, I reached out to [facility] Liaison, to see if any of her facilities would take flu positive pt. [facility] has available private rooms and could accommodate her. Pt adamantly refuses SNF, told me her son will
pick her up after work, around 330 or 4 and take her home and stay with her until he leaves for [place] on Thursday. Instructed her to return to ED Thursday if she does not feel she can be home alone. ED RN updated.
At her request, I went up to see her who is in room 424, informed him his is in ED and will be returning home with their son. He was appreciative of visit and information. Per RN he should be returning to [facility] today.
Original Note:
Received consult, reviewed chart and met with pt bedside in ED. Lives alone in 2 story home with 2 MATT. Has first floor half bath.
Independent in ADLs, personal care and ambulation at baseline. Has RW and cane, does not normally use.
moved to the [facility] 5 months ago. Has 2 sons who live over an hour away, one son currently has the flu, other son is leaving for [place] for the holiday. No other family or friends to provide assistance.
Pt wants to go home, is currently in the hospital but is possibly being discharged today. She visits him daily. Discussed that she cannot visit while she has the flu.
Confirms prescription coverage.
No hx HH or SNF
PCP: Henry Sanches
Pharmacy: [facility]
Awaiting PT evaluation and recommendations.
[2025-09-26] MEDS: ULTRAM 50 MG PO (16:27)
[2025-09-26] MEDS: TENORMIN 50 MG PO (16:34)
--- NOTE | 2025-09-27 09:24 | CM ---
Addendum entered by Nikki Pierson 09/27/25 11:10:
[facility] auth approved
reference number [id number]
Update needs to be called in to [phone]
OB call to Sunita at [facility] to provide above information
OB call to Mamadou son to provide above information
Son will provide transportation to [facility]
Addendum entered by Nikki Pierson 09/27/25 10:30:
Auth sent to Spoke with [employer] [phone] pending auth number [id number]
Updated pt's son Mamadou and Sunita at [facility]
Original Note:
TCF son Mamadou [phone]
Pt is agreeable to go to [facility]
He is able to provide transportation
OB call to Sunita at [facility]
the facility is able to accept her today
CM will get auth from
== END 2025-09-26 17:04 | disposition home or self-care (01) ==
LOC: EMR 09:05
PROVIDERS: EMERGENCY PHYSICIAN Emergency Medicine; FAMILY PHYSICIAN Family Medicine
DX: J10.1 Influenza due to other identified influenza virus with other respiratory manifestations (principal); E86.0 Dehydration; I10 Essential (primary) hypertension; E78.00 Pure hypercholesterolemia, unspecified; K52.9 Noninfective gastroenteritis and colitis, unspecified; F41.9 Anxiety disorder, unspecified; F32.A Depression, unspecified; M79.7 Fibromyalgia; F17.200 Nicotine dependence, unspecified, uncomplicated; Z86.718 Personal history of other venous thrombosis and embolism; W18.39XA Other fall on same level, initial encounter
CPT/HCPCS: 99284; 96374; 96361; 73502; 73552; 80053; 85025; 87502; 93005